=== PATIENT | female | born 1945 | race Caucasian/White ===

== ENCOUNTER → 2017-03-14 | Outpatient (CLI) | payer MEDICARE, OTHER ==
--- NOTE | 2017-03-14 16:25 | RADRPT ---
PROCEDURE: XR Left hip and pelvis. CLINICAL INDICATION: Left hip pain and pelvic pain. TECHNIQUE: 3 views. Frontal pelvis. Frontal and lateral left hip. COMPARISON: None. FINDINGS: There is no fracture or dislocation. The soft tissues are normal. There are degenerative changes of both hips with osteophytes and joint space narrowing. There is no lytic or blastic lesion. There has been prior surgery with a small portion of a metal device in the distal femur visualized. IMPRESSION: 1. Moderate degenerative changes of both hips. 2. Prior left distal femur surgery. 3. Otherwise unremarkable study. RPTAT: QQ .Marc Jj MD, MD Date Time Electronically viewed and signed by .Marc Jj MD, MD on 03/14/2017 16:25 .R/
== END | disposition home or self-care (01) ==
LOC: HKI 10:36
PROVIDERS: ATTEND Orthopaedic Surgery
DX: M79.652 Pain in left thigh (principal); Z96.653 Presence of artificial knee joint, bilateral
CPT/HCPCS: 73502; G0463